=== PATIENT | male | born 2000 ===

== ENCOUNTER 2023-10-01 08:39 | Outpatient (CLI) | payer OTHER, SELFPAY ==
--- NOTE | ~2023-10-01 | US_ITS ---
EXAMINATION: US soft tissue head and neck DATE: 10/01/2023 09:58 INDICATION: Right neck mass. TECHNIQUE: Multiple grayscale and Doppler ultrasound images of the head and neck were obtained. COMPARISON: None FINDINGS: There is a normal lymph node in the patient's area of concern in right neck. IMPRESSION: 1. Normal lymph node in the patient's area of concern in right neck. Reviewed, dictated and finalized at location A.
== END 2023-10-01 08:40 ==
LOC: GOSHIMG 08:40
PROVIDERS: Visit Provider Emergency Medicine
DX: R22.1 Localized swelling, mass and lump, neck (principal)
CPT/HCPCS: 76536